=== PATIENT | female | born 1940 | race Caucasian/White ===

== ENCOUNTER 2018-12-10 13:37 | Outpatient (CLI) | payer MEDICARE, BC ==
--- NOTE | 2018-12-10 14:58 | RAD ---
LUMBAR SPINE RADIOGRAPH 2-3 VIEW SERIES: Date: 12/10/18 INDICATION: Lumbar spine surgery, lumbar radiculopathy. FINDINGS: There is levocurvature of the lumbar spine, epicenter at the L3 level. Accentuated lumbar lordosis is also noted. There is posterior metallic fusion of the L3 and L4 levels with bilateral pedicular scre ws and crossing posterior rods. No obvious perihardware lucency is seen. Suggestion of Grade I spondy lolisthesis L4-5 level, although limited due to patient obliquity on the lateral projection. Incident al note of atherosclerosis. There is multilevel end plate degenerative change, and facet sclerosis. N o compression deformity. IMPRESSION: 1. Postoperative lumbar spine with levoscoliosis and accentuated lumbar lordosis. 2. No obvious perihardware lucency. 3. There is suggestion of Grade I spondylolisthesis L4-5 level. POS: [facility]
--- NOTE | 2018-12-10 15:17 | MRI ---
MRI Lumbar Spine WO Con History: [M 55.16 lumbar radiculopathy.] Comparison: Lumbar radiographs of same day Findings: The aortic contour is nonaneurysmal. No retroperitoneal adenopathy is appreciated. Small le ft periaortic and common iliac lymph nodes are present. Mild bilateral paraspinal muscle atrophy at the level of L5 and L4. Posterior spinal fusion hardware at L3/L4 with transversely oriented interconnecting rods. Mildly heterogeneous appearance of the bone marrow without infiltrative process. Levels are as follows: L1/L2: Normal disc. No neural foraminal or spinal canal narrowing. L2/L3: Mild disc desiccation. Circumferential disc bulge with associated osteophyte. Moderate left an d mild right neural foraminal narrowing. Susceptibility limits evaluation of the left facet. There is 3 mm degenerative retrolisthesis due to degenerative disc space height loss. L3/L4: Moderate degenerative disc space height loss. Posterior spinal fusion. 3 mm anterolisthesis. N eural foraminal evaluation is limited although there does appear to be moderate bilateral neural foraminal narrowing at both levels due to posterior disc osteophyte complex. L4/L5: Moderate degenerative disc space height loss. 2 mm anterolisthesis. Broad-based posterior disc bulge causes moderate bilateral neural foraminal narrowing. Joint effusions bilaterally within the facets. L5/S1: Normal disc hydration. No neural foraminal or spinal canal narrowing. Mild fibrosis and scar a long the posterior annulus. Impression: Multilevel moderate spondylosis as described.
== END 2018-12-10 13:38 | disposition home or self-care (01) ==
LOC: TBSIIMAG 13:37
PROVIDERS: ATTEND Neurological Surgery
DX: M47.26 Other spondylosis with radiculopathy, lumbar region (principal); M43.16 Spondylolisthesis, lumbar region; M41.9 Scoliosis, unspecified; Z98.890 Other specified postprocedural states
CPT/HCPCS: 72100; 72148; 72158; 82565